=== PATIENT | male | born 1945 | race Two or more races ===

== ENCOUNTER 2016-12-11 22:31 | Emergency (ER) | payer OTHER ==
[~2016-12-11] VITALS: Ht 182.9 cm; Wt 77.1 kg
[~2016-12-11 22:31] MED LIST: ASPIRIN325 MG ORAL; ATORVASTATIN CA40 MG ORAL; BRIMONIDINE TART5 ML BOTH EYES; CARVEDILOL3.125 MG ORAL; CLOPIDOGREL75 MG ORAL; LATANOPROST2.5 ML BOTH EYES; LISINOPRIL2.5 MG ORAL; TEMAZEPAM15 MG ORAL
[2016-12-11 23:05] VITALS: BP 126/70
[2016-12-12] MEDS ORDERED: Enoxaparin 80mg Inj SUBQ ONE (00:15)
[2016-12-12 00:24] LABS: MEAN CORPUSCULAR HEMOGLOBIN 31.5 PG (27.0-31.0); MEAN CORPUSCULAR HGB CONC 34.7 G/DL (32.0-36.0); MEAN CORPUSCULAR VOLUME 91 FL (80-99); MEAN PLATELET VOLUME 8.1 FL (6.5-10.1); PLATELET COUNT 124 K/UL (150-450); RED BLOOD COUNT 5.32 M/UL (4.70-6.10); RED CELL DISTRIBUTION WIDTH 12.5 % (11.6-14.8); WHITE BLOOD COUNT 19.1 K/UL (4.8-10.8)
[2016-12-12 00:35] LABS: ALANINE AMINOTRANSFERASE 28 U/L (3-41); ALBUMIN/GLOBULIN RATIO 1.3 (1.0-2.7); ANION GAP 19 (5-15); ASPARTATE AMINO TRANSFERASE 69 U/L (5-40); CALCIUM 9.3 mg/dL (8.6-10.2); CARBON DIOXIDE 24 mEQ/L (20-30); CHLORIDE 94 mEQ/L (98-107); CREATININE 0.9 mg/dL (0.7-1.2); HEMOLYSIS 13; SODIUM 137 mEQ/L (135-145); TOTAL PROTEIN 7.3 g/dL (6.6-8.7)
[2016-12-12 00:38] LABS: INR 1.3 (0.9-1.1); PROTHROMBIN TIME 13.8 SEC (9.30-11.50); TROPONIN I 7.24 ng/mL (<=0.30)
[2016-12-12 00:46] LABS: CKMB 72.4 ng/mL (< 6.7)
[2016-12-12 00:49] LABS: BAND NEUTROPHILS % (MANUAL) 2 % (0-8); BASOPHILS % (MANUAL) 0 % (0-2); EOSINOPHILS % (MANUAL) 0 % (0-3); LYMPHOCYTES % (MANUAL) 5 % (20-45); NEUTROPHILS % (MANUAL) 87 % (45-75); PLATELET ESTIMATE DECREASED; PLATELET MORPHOLOGY NORMAL; TOTAL CELLS COUNTED 100
[2016-12-12 01:00] VITALS: BP 88/62
[2016-12-12] MEDS ORDERED: Piperacillin/Tazobactam 3.375 GM in NS 110 ML IVPB ONE (01:15)
[2016-12-12] MEDS ORDERED: Zosyn 3.375gm inj ONE (01:17)
[2016-12-12 02:00] VITALS: BP 110/70
--- NOTE | 2016-12-12 03:26 | Emergency Room Report ---
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, in October Patient had conversion of atrial fibrillation On today's visit denies any chest pain denies any shortness of breath Denies any back or flank pain Had some chills but denies any obvious fevers Patient was actively vomiting And brought in by paramedics Allergies: Coded Allergies: MEPERIDINE (Verified Adverse Reaction, Mild, [place], 01/12/14) NAUSEA AND VOMITING Patient History Past Medical History: see triage record Pertinent Family History: none Reviewed Nursing Documentation: PMH: Agreed, PSxH: Agreed Nursing Documentation-PMH Hx Cardiac Problems: Yes Hx Hypertension: Yes Hx Cancer: No Hx Gastrointestinal Problems: Yes Hx Neurological Problems: No Review of Systems All Other Systems: negative except mentioned in HPI Physical Exam Vital Signs Date Time Temp Pulse Resp B/P Pulse Ox O2 Delivery O2 Flow Rate FiO2 12/11/16 22:31 98.1 88 18 126/70 97 Room Air 12/12/16 01:00 2.0 Sp02 EP Interpretation: reviewed, normal General Appearance: moderate distress - Appears uncomfortable, actively nauseated and vomiting in the ER Head: normocephalic, atraumatic Eyes: bilateral eye EOMI, bilateral eye PERRL ENT: dry mucus membranes Neck: supple, thyroid normal Respiratory: lungs clear, normal breath sounds, no rhonchi Cardiovascular #1: regular rate, rhythm, no edema, no gallop Gastrointestinal: non tender, soft, no mass Genitourinary: no CVA tenderness Musculoskeletal: normal inspection Neurologic: alert, oriented x3, responsive, 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 Skin: normal color, no rash, warm/dry Lymphatic: no adenopathy Procedures Critical Care Time Critical Care Time 50 minutes for multiple re\re evaluations critical findings concerning for end organ injury and life-threatening pathology Speaking to system consultant Not including any procedural time Medical Decision Making Diagnostic Impression: Primary Impression: Non-ST elevated myocardial infarction Additional Impression: CVA (cerebral vascular accident) ER Course Patient is complex with multiple differentials entertained requiring blood work and imaging study Differentials such as cardiac, cardiopulmonary, vascular pathology entertained Patient's CT head shows evidence of left-sided parietal subacute infarct Patient's troponin is significantly elevated Patient was provided with subcutaneous Lovenox after the CT exam After hydration and anti-medics patient does also feel significantly improved Patient's white blood cell count is also significantly elevated possible aspiration as considered with the bronchoscopy in patient was given antibiotics Patient requires higher level of care including facility with cardiac cath capacity, patient's insurance is also capitated to [facility] and the patient had recent procedures performed at that facility At this time further discussion was made with transfer center and I did speak to excepting physician at the facility patient accepted for continued inpatient care and multispecialty input Discussion with [facility] hospitalist also reveals the patient had elevated troponin at the facility, and MRI showing left parietal infarct Labs Test 12/12/16 00:10 White Blood Count 19.1 K/UL (4.8-10.8) Red Blood Count 5.32 M/UL (4.70-6.10) Hemoglobin 16.8 G/DL (14.2-18.0) Hematocrit 48.3 % (42.0-52.0) Mean Corpuscular Volume 91 FL (80-99) Mean Corpuscular Hemoglobin 31.5 PG (27.0-31.0) Mean Corpuscular Hemoglobin Concent 34.7 G/DL (32.0-36.0) Red Cell Distribution Width 12.5 % (11.6-14.8) Platelet Count 124 K/UL (150-450) Mean Platelet Volume 8.1 FL (6.5-10.1) Neutrophils (%) (Auto) % (45.0-75.0) Lymphocytes (%) (Auto) % (20.0-45.0) Monocytes (%) (Auto) % (1.0-10.0) Eosinophils (%) (Auto) % (0.0-3.0) Basophils (%) (Auto) % (0.0-2.0) Differential Total Cells Counted 100 Neutrophils % (Manual) 87 % (45-75) Lymphocytes % (Manual) 5 % (20-45) Monocytes % (Manual) 6 % (1-10) Eosinophils % (Manual) 0 % (0-3) Basophils % (Manual) 0 % (0-2) Band Neutrophils 2 % (0-8) Platelet Estimate Decreased Platelet Morphology Normal Red Blood Cell Morphology Normal Prothrombin Time 13.8 SEC (9.30-11.50) Prothromb Time International Ratio 1.3 (0.9-1.1) Activated Partial Thromboplast Time 25 SEC (23-33) Sodium Level 137 mEQ/L (135-145) Potassium Level 4.0 mEQ/L (3.4-4.9) Chloride Level 94 mEQ/L (98-107) Carbon Dioxide Level 24 mEQ/L (20-30) Anion Gap 19 (5-15) Blood Urea Nitrogen 14 mg/dL (7-23) Creatinine 0.9 mg/dL (0.7-1.2) Estimat Glomerular Filtration Rate mL/min (>60) Glucose Level 140 mg/dL (74-106) Calcium Level 9.3 mg/dL (8.6-10.2) Total Bilirubin 0.7 mg/dL (0.0-1.2) Aspartate Amino Transf (AST/SGOT) 69 U/L (5-40) Alanine Aminotransferase (ALT/SGPT) 28 U/L (3-41) Alkaline Phosphatase 137 U/L (40-129) Total Creatine Kinase 547 U/L (38-174) Creatine Kinase MB 72.4 ng/mL (< 6.7) Creatine Kinase MB Relative Index 13.2 Troponin I 7.24 ng/mL (<=0.30) Pro-B-Type Natriuretic Peptide 6916 pg/mL (0-125) Total Protein 7.3 g/dL (6.6-8.7) Albumin 4.2 g/dL (3.5-5.2) Globulin 3.1 g/dL Albumin/Globulin Ratio 1.3 (1.0-2.7) EKG Diagnostic Results Rate: normal Rhythm: NSR ST Segments: no acute changes Rhythm Strip Diag. Results EP Interpretation: yes Rate: 67 Rhythm: NSR, no PVC's, no ectopy Chest X-Ray Diagnostic Results EP Interpretation: Yes Findings: no consolidation, no effusion, no pneumothorax, other - Right perihilar fullness Number of Views: 1 CT/MRI/US Diagnostic Results CT/MRI/US Diagnostic Results : Impression CT head: Evidence of left parietal subacute infarct Last Vital Signs Date Time Temp Pulse Resp B/P Pulse Ox O2 Delivery O2 Flow Rate FiO2 12/12/16 01:00 98.4 74 16 88/62 97 Nasal Cannula 2.0 Status: improved Disposition: XFER SHT-TRM HOSP Condition: Critical Referrals: VALARIE,REFERRING (PCP) HEENA CASEY D.O. Dec 12, 2016 03:26
[2016-12-12 03:30] VITALS: BP 111/61
[2016-12-12 05:30] VITALS: BP 115/63
[2016-12-12 07:30] VITALS: BP 120/68
[2016-12-12 08:00] VITALS: BP 119/70
--- NOTE | 2016-12-12 10:15 | Diagnostic Imaging Report ---
Indication: Dizziness Technique: Contiguous 5 mm thick transaxial imaging of the head obtained in a Siemens Sensation [address] scanner. Soft tissue and bone windows generated. Total Dose length Product (DLP): [address] Dose Index Volume (CTDIvol): 70.38 mGy Comparison: none Findings: There is mild prominence of the ventricles, basal cisterns, and cerebral sulci consistent with atrophy. Mild, nonspecific, white matter hypoattenuation is noted throughout the brain consistent with chronic small vessel disease. There is abnormal slightly wedge-shaped focus of low attenuation involving the left posterior parietal lobe. This is probably an older infarct. This could be subacute in age. Please correlate clinically. There is no midline shift, edema, acute hemorrhage, mass effect, or abnormal extra-axial fluid collections. Bones and extra osseous soft tissues are unremarkable. Impression: Suspected subacute infarct left posterior parietal region. Please correlate clinically. No acute intracranial bleed, mass effect or edema. Mild atrophy of the brain. Nonspecific white matter hypoattenuation probably due to chronic small vessel disease. The CT scanner at [facility] is accredited by the [employer] and the scans are performed using protocols designed to limit radiation exposure to as low as reasonably achievable to attain images of sufficient resolution adequate for diagnostic evaluation.
--- NOTE | 2016-12-12 10:57 | Diagnostic Imaging Report ---
Indication: Chest Pain Comparison: None A single view chest radiograph was obtained. Findings: Abnormal opacity in the right upper lobe demonstrated. Underlying mass may be present. Recommend evaluation with CT chest. At the least, a followup examination is recommended. Please correlate clinically as well. Heart size is normal. The bones are osteopenic. Impression: Masslike opacity in the right upper lobe. Recommend CT chest for further evaluation. Findings conveyed to Dr. Dos Santos in the E.D.
--- NOTE | 2016-12-13 14:03 | Cardiology Report ---
APPROVED REPORT EKG Measurement Heart [id number] Normal sinus rhythm Anteroseptal infarct, age undetermined Abnormal ECG
== END 2016-12-12 08:28 | disposition short-term general hospital (02) ==
LOC: EDBD 22:31 → EMR 23:48
DX: I21.4 Non-ST elevation (NSTEMI) myocardial infarction (principal); I63.9 Cerebral infarction, unspecified; I10 Essential (primary) hypertension
CPT/HCPCS: 36415; 70450; 71010; 80053; 82550; 82553; 83880; 84484; 85007; 85025; 85610; 85730; 93005; 96360; 96374; 96375; 99291; J1650; J2405; J2543